=== PATIENT | female | born 1975 | race Two or more races ===

== ENCOUNTER 2023-03-20 05:25 | Emergency (ER) | payer OTHER ==
[~2023-03-20] VITALS: Ht 167.6 cm; Wt 94.3 kg
[2023-03-20] MEDS ORDERED: BACTRIM DS TAB1 EACH PO (08:34)
== END 2023-03-20 08:51 | disposition home or self-care (01) ==
LOC: ER 05:25
DX: L02.415 Cutaneous abscess of right lower limb (principal)

== ENCOUNTER 2023-11-28 20:19 | Emergency (ER) | payer OTHER ==
[~2023-11-28] VITALS: Ht 167.6 cm; Wt 89.8 kg
[~2023-11-28 20:19] MED LIST: BACTRIM DS TAB1 EACH PO
[2023-11-28] MEDS ORDERED: hydrOXYzine PAMOATE 50 MG CAPSULE PO STA (21:03)
== END 2023-11-28 21:14 | disposition home or self-care (01) ==
LOC: ER 20:19
DX: R21 Rash and other nonspecific skin eruption (principal)